=== PATIENT | female | born 1990 | race Caucasian/White ===

== ENCOUNTER 2024-05-20 14:44 | Emergency (ER) | payer OTHER, SELFPAY ==
[2024-05-20 14:47] VITALS: BP 108/66; PULSE 86; RESP 20; TEMP 37.5; O2SAT 100
== END 2024-05-20 15:11 | disposition left against medical advice (07) ==
PROVIDERS: Emergency Provider Internal Medicine Hematology & Oncology
DX: Z53.21 Procedure and treatment not carried out due to patient leaving prior to being seen by health care provider (principal)
CPT/HCPCS: 99199